=== PATIENT | female | born 1940 | race Caucasian/White ===

== ENCOUNTER 2018-05-17 11:30 | Day surgery (SDC) | payer MEDICARE, OTHER ==
[2018-05-17] MEDS ORDERED: LIDOCAINE 1% MDV (10MG/ML) 20ML VIAL SQ ONE (11:31)
--- NOTE | 2018-05-18 08:20 | Operative Note ---
DATE OF SURGERY: 05/17/2018 PREOPERATIVE DIAGNOSIS: Right trigger thumb. POSTOPERATIVE DIAGNOSIS: Right trigger thumb. OPERATION: Release of right trigger thumb. Staff Surgeon: Quincy Saldaña MD Anesthesia: Local. Preparation: Chloraprep. Individual Considerations: None. PROCEDURE: The patient was taken to the operating room, placed supine on the operating room table. She had a successful induction of local anesthesia over the A1 archie and prepped and draped in the usual fashion. The patient had about a 1.5 cm incision directly over the A1 archie longitudinally. Sharp dissection carried down through the skin and blunt dissection carried down to the archie. The neurovascular bundles were brought to either side. A keyla was made and it was released with scissors proximally and distally. I then had her move her thumb and it would no longer trigger. Tourniquet was let down. Hemostasis was obtained with compression. The skin was closed with 4-0 nylon in a vertical mattress fashion. A bulky compressive hand dressing was applied. She tolerated the procedure well and was taken back to recovery in good condition. There were no complications. TIO
== END 2018-05-17 14:42 | disposition home or self-care (01) ==
LOC: SUR 11:30
PROVIDERS: ATTEND Orthopaedic Surgery
DX: M65.311 Trigger thumb, right thumb (principal); I10 Essential (primary) hypertension

== ENCOUNTER 2018-12-06 10:03 | Day surgery (SDC) | payer MEDICARE, OTHER ==
[2018-12-06] MEDS ORDERED: DIAZEPAM 5 MG TABLET PO ONE (11:03)
[2018-12-06] MEDS ORDERED: LIDOCAINE 1% W/EPI 1:200,000 MPF 30ML SQ ONE (12:30)
--- NOTE | 2018-12-08 13:00 | Operative Note ---
DATE OF SURGERY: 12/06/2018 PREOPERATIVE DIAGNOSIS: Painful neoplasm and trigger finger of the left ring finger. POSTOPERATIVE DIAGNOSES: 1. Trigger finger of the left ring finger. 2. Ganglion cyst of the tendon sheath left ring finger. OPERATION: 1. Excision of ganglion cyst tendon sheath left ringer finger. 2. Trigger finger release left ring finger. STAFF SURGEON: Quincy Saldaña MD ANESTHESIA: Local. PREPARATION: Chloraprep. INDIVIDUAL CONSIDERATIONS: None. PROCEDURE: The patient was taken to the operating room and placed supine on the operating room table. Her right hand was prepped and draped in the usual fashion. She had a palpable lesion over the tendon sheath over the A1 archie. The area was infiltrated with 1% lidocaine with epinephrine. Limb was elevated and tourniquet was inflated to 250 mmHg. An approximately 2 cm incision was made through the skin and blunt dissection carried down to the sheath. Right at the base of the A1 archie, there was about a 3-4 mm cyst. This was removed in toto and sent for specimen. I then directly released the A1 archie and then she would no longer trigger. No tumors were seen deep. Tourniquet was let down and hemostasis was obtained with a Bovie and compression. After irrigation, the skin was approximated with interrupted 4-0 nylon in a vertical mattress fashion. A sterile bulky compressive hand dressing was applied. The patient tolerated procedure well. Needle and sponge counts were correct. Estimated blood loss was minimal. The patient was taken back to recovery in good condition. There were no complications. [facility]
== END 2018-12-06 13:09 | disposition home or self-care (01) ==
LOC: SUR 10:03
PROVIDERS: ATTEND Orthopaedic Surgery
DX: M65.342 Trigger finger, left ring finger (principal); M67.442 Ganglion, left hand; I10 Essential (primary) hypertension

== ENCOUNTER 2019-02-14 08:35 | Day surgery (SDC) | payer MEDICARE, OTHER ==
[~2019-02-14 08:35] MED LIST: ACETAMINOPHEN 1,000 MG/100 ML BTL IVPB ONE; CEFAZOLIN 2 Gram 2 GM/50 ML BAG IVPB ONE; FAMOTIDINE 20MG TABLET PO ONE; MECLIZINE 25 MG TABLET PO ONE; METOCLOPRAMIDE 10 MG TABLET PO ONE
[2019-02-14] MEDS ORDERED: PROPOFOL 10 MG/ML VIAL IV ONE (08:36)
[2019-02-14] MEDS ORDERED: LIDOCAINE 2% MDV (20MG/ML) 20ML VIAL IV ONE (08:36)
[2019-02-14] MEDS ORDERED: MIDAZOLAM HCL 2MG/2ML VIAL IV ONE (08:36)
[2019-02-14] MEDS ORDERED: FENTANYL PF 100MCG/2ML VIAL IV ONE (08:36)
[2019-02-14] MEDS ORDERED: RINGERS SOLUTION,LACTATED 1,000 ML IV ONE (09:24)
[2019-02-14] MEDS ORDERED: LIDOCAINE 1% W/EPI 1:200,000 MPF 30ML SQ ONE ×2 (11:50)
[2019-02-14] MEDS ORDERED: BUPIVACAINE 0.5% W/EPI MPF 30 ML VIAL SQ ONE ×2 (11:50)
--- NOTE | 2019-02-15 07:30 | Operative Note ---
DATE OF SURGERY: 02/14/2019 PREOPERATIVE DIAGNOSIS: Chronic left Achilles tendonitis with spur. POSTOPERATIVE DIAGNOSIS: Chronic left Achilles tendonitis with spur. OPERATION: Removal of Achilles tendon spur. STAFF SURGEON: Quincy Saldaña MD ANESTHESIA: Local with sedation. PREPARATION: Chloraprep. INDIVIDUAL CONSIDERATIONS: None. PROCEDURE: The patient was taken to the operating room and placed prone on the operating room table. She was given IV sedation. Her left leg was prepped and draped in the usual fashion. The patient had a medial approach to the Achilles tendon. The skin was infiltrated with 0.5% Marcaine with epinephrine prior. Sharp dissection carried down through skin and subcutaneous tissues. Small veins were coagulated with a Bovie. Incision was made then midline through the Achilles tendon, through the paratenon, and through the Achilles tendon. The spur was distal. I was able to remove it with a small osteotome and then debride it with a Rongeur. After irrigation, I closed the tendon with a running #1 Vicryl, closed the paratenon with running 3-0 Vicryl, and then the skin with interrupted 3-0 nylon in a vertical mattress fashion. A sterile bulky compressive dressing and sling were applied. A small compressive dressing was applied. The patient was taken back to recovery in good condition. She was given a walking boot and there were no complications. [facility]
== END 2019-02-14 13:05 | disposition home or self-care (01) ==
LOC: SUR 08:35
PROVIDERS: ATTEND Orthopaedic Surgery
DX: M76.62 Achilles tendinitis, left leg (principal); I10 Essential (primary) hypertension; R06.02 Shortness of breath; K21.9 Gastro-esophageal reflux disease without esophagitis; E03.9 Hypothyroidism, unspecified; N32.81 Overactive bladder
CPT/HCPCS: J7120